=== PATIENT | female | born 1950 | race African-American/Black ===

== ENCOUNTER → 2016-08-11 | Outpatient (CLI) | payer OTHER | LOC: RAD 01:55 | DX: Z12.31 Encounter for screening mammogram for malignant neoplasm of breast (principal) ==

== ENCOUNTER → 2017-08-28 | Outpatient (CLI) | payer OTHER | LOC: RAD 00:14 | DX: Z12.31 Encounter for screening mammogram for malignant neoplasm of breast (principal) ==

== ENCOUNTER → 2018-10-11 | Outpatient (CLI) | payer OTHER | LOC: BC 10:51 | DX: Z12.31 Encounter for screening mammogram for malignant neoplasm of breast (principal) ==

== ENCOUNTER → 2019-12-15 | Outpatient (CLI) | payer OTHER | LOC: RAD 12:34 | PROVIDERS: ATTEND Internal Medicine | DX: Z12.31 Encounter for screening mammogram for malignant neoplasm of breast (principal) ==

== ENCOUNTER → 2021-01-31 | Outpatient (CLI) | payer OTHER | LOC: RAD 09:56 | PROVIDERS: ATTEND Nurse Practitioner Adult Health | DX: Z12.31 Encounter for screening mammogram for malignant neoplasm of breast (principal); N64.89 Other specified disorders of breast ==